=== PATIENT | female | born 1970 | race Caucasian/White ===

== ENCOUNTER 2018-01-31 11:07 | Outpatient (CLI) | payer OTHER ==
[~2018-01-31 11:07] MED LIST: ENEMA READY TO135 ML RC; LEVSIN/SL0.125 MG PO; PROTONIX40 MG PO; RELAGESIC 5001 EACH PO
== END 2018-01-31 11:15 | disposition home or self-care (01) ==
LOC: MAMO-SONO 11:07
DX: Z12.31 Encounter for screening mammogram for malignant neoplasm of breast (principal); N60.11 Diffuse cystic mastopathy of right breast; N60.12 Diffuse cystic mastopathy of left breast

== ENCOUNTER 2019-01-06 18:41 | Emergency (ER) | payer OTHER ==
[~2019-01-06] VITALS: Ht 162.6 cm; Wt 54.4 kg
[2019-01-06] MEDS ORDERED: ADVIL (19:07)
[2019-01-06] MEDS ORDERED: VOLTAREN-XR100 MG PO (21:52)
== END 2019-01-06 22:00 | disposition home or self-care (01) ==
LOC: ER 18:41
DX: S40.021A Contusion of right upper arm, initial encounter (principal); S10.83XA Contusion of other specified part of neck, initial encounter; S30.0XXA Contusion of lower back and pelvis, initial encounter; W18.2XXA Fall in (into) shower or empty bathtub, initial encounter; Y93.89 Activity, other specified; Y92.012 Bathroom of single-family (private) house as the place of occurrence of the external cause; Y99.8 Other external cause status

== ENCOUNTER 2019-09-09 10:45 | Outpatient (CLI) | payer OTHER ==
[~2019-09-09 10:45] MED LIST changes: +ADVIL; +VOLTAREN-XR100 MG PO
== END 2019-09-09 10:56 | disposition home or self-care (01) ==
LOC: MAMO-SONO 10:45
PROVIDERS: ATTEND Specialist
DX: Z12.31 Encounter for screening mammogram for malignant neoplasm of breast (principal); Z87.898 Personal history of other specified conditions; N60.11 Diffuse cystic mastopathy of right breast; N60.12 Diffuse cystic mastopathy of left breast

== ENCOUNTER 2020-09-14 10:34 | Outpatient (CLI) | payer OTHER | END 2020-09-14 10:37 | disposition home or self-care (01) | LOC: MAMO-SONO 10:34 | PROVIDERS: ATTEND Specialist | DX: Z12.31 Encounter for screening mammogram for malignant neoplasm of breast (principal); N60.11 Diffuse cystic mastopathy of right breast; N60.12 Diffuse cystic mastopathy of left breast ==

== ENCOUNTER 2021-04-05 08:54 | Outpatient (CLI) | payer OTHER | END 2021-04-05 08:55 | disposition home or self-care (01) | LOC: LAB 08:54 | PROVIDERS: ATTEND Specialist | DX: D64.89 Other specified anemias (principal); Z12.11 Encounter for screening for malignant neoplasm of colon; E03.8 Other specified hypothyroidism; N95.1 Menopausal and female climacteric states; I10 Essential (primary) hypertension; C51.8 Malignant neoplasm of overlapping sites of vulva; N30.00 Acute cystitis without hematuria; A64 Unspecified sexually transmitted disease; N39.0 Urinary tract infection, site not specified; R97.8 Other abnormal tumor markers; R79.89 Other specified abnormal findings of blood chemistry; E55.9 Vitamin D deficiency, unspecified ==

== ENCOUNTER 2021-04-05 10:15 | Outpatient (CLI) | payer OTHER | END 2021-04-05 10:26 | disposition home or self-care (01) | LOC: SONOGRAMA 10:15 | PROVIDERS: ATTEND Specialist | DX: N60.01 Solitary cyst of right breast (principal); R92.8 Other abnormal and inconclusive findings on diagnostic imaging of breast ==

== ENCOUNTER 2021-10-06 10:16 | Outpatient (CLI) | payer OTHER | END 2021-10-06 10:31 | disposition home or self-care (01) | LOC: MAMO-SONO 10:16 | PROVIDERS: ATTEND Specialist | DX: N60.11 Diffuse cystic mastopathy of right breast (principal); N60.12 Diffuse cystic mastopathy of left breast ==

== ENCOUNTER 2023-11-08 21:38 | Emergency (ER) | payer OTHER ==
[~2023-11-08] VITALS: Ht 162.6 cm; Wt 55.3 kg
[2023-11-08] MEDS ORDERED: GABAPENTIN300 M2 PO (22:01)
[2023-11-08] MEDS ORDERED: LEVOCETIRIZINE D5 MG PO (22:02)
[2023-11-08] MEDS ORDERED: OMEPRAZOLE-BIC1 EAC1 (22:02)
[2023-11-08] MEDS ORDERED: FAMOTIDINE40 MG PO (22:03)
[2023-11-08] MEDS ORDERED: VALACYCLOVIR1000 MG PO (22:03)
[2023-11-08] MEDS ORDERED: WAL-FEX ALLERG180 MG PO (22:04)
[2023-11-08] MEDS ORDERED: TRIAMCINOLONE A15 GM (22:04)
[2023-11-09] MEDS ORDERED: TRIAMCINOLONE ACETONIDE 40 MG/ML VIAL IM STA (00:35)
[2023-11-09] MEDS ORDERED: TRIAMCINOLONE ACETONIDE 40 MG/ML VIAL ONE (00:44)
== END 2023-11-09 02:11 ==
LOC: ER 21:39
DX: M79.609 Pain in unspecified limb (principal); R20.2 Paresthesia of skin

== ENCOUNTER 2025-03-24 10:48 | Outpatient (CLI) | payer OTHER ==
[~2025-03-24 10:48] MED LIST changes: +FAMOTIDINE40 MG PO; +GABAPENTIN300 M2 PO; +LEVOCETIRIZINE D5 MG PO; +OMEPRAZOLE-BIC1 EAC1; +TRIAMCINOLONE A15 GM; +VALACYCLOVIR1000 MG PO; +WAL-FEX ALLERG180 MG PO
== END 2025-03-24 10:51 | disposition home or self-care (01) ==
LOC: MAMO-SONO 10:48
PROVIDERS: ATTEND Specialist
DX: N60.11 Diffuse cystic mastopathy of right breast (principal); N60.12 Diffuse cystic mastopathy of left breast